=== PATIENT | female | born 1995 | race Caucasian/White ===

== ENCOUNTER 2019-05-16 03:40 | Emergency (ER) | payer BC, SELFPAY ==
[2019-05-16] MEDS ORDERED: Ibuprofen 200 MG TAB ONE (03:55)
--- NOTE | 2019-05-16 08:47 | RAD ---
LEFT ANKLE 3 VIEWS: HISTORY: Injury with ankle pain. FINDINGS: No significant soft tissue swelling. No evidence of fracture. IMPRESSION: No acute findings. POS: OFF
== END 2019-05-16 04:22 | disposition home or self-care (01) ==
LOC: ERS 03:40
DX: S93.402A Sprain of unspecified ligament of left ankle, initial encounter (principal); W18.2XXA Fall in (into) shower or empty bathtub, initial encounter

== ENCOUNTER 2020-01-17 08:42 | Outpatient (CLI) | payer OTHER ==
--- NOTE | 2020-01-17 09:48 | ULT ---
EXAM: Complete obstetrical ultrasound PROVIDED CLINICAL HISTORY: anatomy COMPARISON: None. FINDINGS: Number of gestations: Single. Presentation: Transverse with head to maternal right. Placental location: Anterior Previa: No evidence for previa. Cervical length: 5.8 cm ROLAN: 17.2 cm. heart rate: 150 bpm. Biparietal diameter: 4.8cm, 20 weeks 4 days, . Head circumference: 18.2 cm, 20 weeks 5 days, Abdominal circumference: 16.6 cm, 21 weeks 5 days, Femoral length: 3.9cm, 22 weeks 3 days, Estimated weight: 450 g +/- 66g SURVEY: head: Normal appearing. Cerebellum: Normal appearing. Cisterna magna: Normal appearing. Lateral ventricles: Normal appearing. 4 chamber heart: Normal appearing.. Stomach: Normal appearing. Kidneys: Normal appearing. Cord insertion: Normal appearing. Bladder: Normal appearing. Spine: Normal appearing. Lips and nose: Normal appearing. Extremities: Normal appearing. Three-vessel CORD: Normal appearing. The average gestational age by ultrasound is 21 weeks 3 days. IMPRESSION: 1. Single live intrauterine gestation with size and dates as above.
== END 2020-01-17 08:43 | disposition home or self-care (01) ==
LOC: BICULT 08:42
PROVIDERS: ATTEND Family Medicine
DX: O09.892 Supervision of other high risk pregnancies, second trimester (principal); Z3A.21 21 weeks gestation of pregnancy
CPT/HCPCS: 76805

== ENCOUNTER 2020-05-22 10:09 | Inpatient (IN) | payer OTHER ==
[~2020-05-22 10:09] MED LIST: Bupivacaine 0.25% HCL 30 ML VIAL ONE
[2020-05-22] MEDS ORDERED: Penicillin G Potassium 5 MILL.UNITS VIAL ONE (10:42)
[2020-05-22] MEDS ORDERED: Fentanyl 4 mcg/Bup 0.1% Cadd 100 ML ONE (10:54)
[2020-05-22 11:34] LABS: Hemoglobin 13.3 g/dL (12.0-16.0); Mean Corpuscular HGB CONC 33.3 g/dL (32.0-36.0); Mean Corpuscular Hemoglobin 28.8 pg (27.0-31.0); Mean Corpuscular Volume 86.5 fL (78.0-98.0); Mean Platelet Volume 10.5 fL (7.4-10.4); Platelet Count 234 thou/uL (130-400); RBC Distribution Width 13.6 % (11.5-14.5); Red Blood Cell (RBC) Count 4.63 mill/uL (4.20-5.40); White Blood Cell (WBC) Count 13.1 thou/uL (4.8-10.8)
[2020-05-22] MEDS ORDERED: Fentanyl 100 MCG/2 ML VIAL ONE (11:43)
[2020-05-22 11:44] VITALS: BMI 43.9
[2020-05-22 12:15] LABS: Syphilis Antibody Nonreactive (Nonreactive); Syphilis Antibody Index 0.03 S/CO (<1.00 Non-Reactive)
[2020-05-22 12:17] LABS: HBSAg Index 0.21 S/CO (0-0.99); Hep B Surf Ag Non-Reactive S/CO (NonReactive)
[2020-05-22] MEDS ORDERED: Ondansetron PF 4 MG/2 ML Vial IVP PRN ×2 (12:21→17:02)
[2020-05-22] MEDS ORDERED: Lactated Ringer's 500 ML IV PRN (12:21)
[2020-05-22] MEDS ORDERED: diphenhydrAMINE 50 MG/ML VIAL IVP PRN (12:21)
[2020-05-22] MEDS ORDERED: Promethazine HCl 25 MG/ML VIAL IM PRN (12:21)
[2020-05-22] MEDS ORDERED: EPHEDRINE 25 MG/5 ML SYRINGE SLOW IVP PRN (12:21)
[2020-05-22] MEDS ORDERED: Naloxone HCl 0.4 mg/ml Vial IVP PRN ×2 (12:21)
[2020-05-22] MEDS ORDERED: Acetaminophen 325 MG TAB PO PRN (12:21)
[2020-05-22] MEDS ORDERED: Fentanyl 4 mcg/Bupivacaine 0.1% Cassette 100 ML EPIDURAL SCH (12:30)
[2020-05-22] MEDS ORDERED: Communication Order-Pharmacy FS SCH (12:30)
[2020-05-22] MEDS ORDERED: Misoprostol 200 MCG TAB ONE (13:41)
[2020-05-22] MEDS ORDERED: NS / Oxytocin 40 units/1000ml 1,000 ML ONE (13:41)
[2020-05-22] MEDS ORDERED: Methylergonovine 0.2 MG/ML VIAL ONE (14:05)
[2020-05-22] MEDS ORDERED: HYDROcodone/Acetaminophen 5/325 mg Tablet PO PRN ×2 (17:02)
[2020-05-22] MEDS ORDERED: Milk Of Magnesia 30 ML UDCUP PO PRN (17:02)
[2020-05-22] MEDS ORDERED: Lanolin Ointment 7 GM TUBE TOP PRN (17:02)
[2020-05-22] MEDS ORDERED: hydrALAZINE 20 MG/ML VIAL SLOW IVP PRN (17:02)
[2020-05-22] MEDS ORDERED: diphenhydrAMINE 25 MG CAP PO PRN (17:02)
[2020-05-22] MEDS ORDERED: Bisacodyl 10 MG SUPP PR PRN (17:02)
[2020-05-22] MEDS ORDERED: NS / Oxytocin 40 units/1000ml 1,000 ML IV SCH (17:02)
[2020-05-22] MEDS ORDERED: Ferrous Sulfate 325 MG TAB PO SCH (17:45)
[2020-05-22] MEDS: Docusate Calcium (SURFAK) 240 MG CAP PO SCH (19:57)
[2020-05-22] MEDS: Ibuprofen 800 MG TAB PO SCH (19:57)
[2020-05-23] MEDS: Ibuprofen 800 MG TAB PO SCH ×3 (05:15→21:42)
[2020-05-23] MEDS ORDERED: Adacel (T-DAP) 0.5 ML SYRINGE IM ONE (09:00)
[2020-05-23] MEDS: Docusate Calcium (SURFAK) 240 MG CAP PO SCH ×2 (09:35→21:42)
[2020-05-23] MEDS: Ferrous Sulfate 325 MG TAB PO SCH ×2 (09:37→18:18)
[2020-05-24] MEDS: Ibuprofen 800 MG TAB PO SCH (05:26)
[2020-05-24 08:28] VITALS: TEMP 98.7
[2020-05-24 09:02] VITALS: BP 143/66
[2020-05-24] MEDS: Docusate Calcium (SURFAK) 240 MG CAP PO SCH (09:40)
[2020-05-24] MEDS: Ferrous Sulfate 325 MG TAB PO SCH (09:40)
== END 2020-05-24 16:52 | disposition home or self-care (01) | DRG 807 ==
LOC: L&D/OP 10:09 → L&D 14:00 → 3SE 17:20
PROVIDERS: ADMIT Family Medicine; ATTEND Family Medicine
PROC: 10E0XZZ Delivery of Products of Conception, External Approach (ICD-10-PCS; principal; 2020-05-22)
PROC: 10907ZC Drainage of Amniotic Fluid, Therapeutic from Products of Conception, Via Natural or Artificial Opening (ICD-10-PCS; 2020-05-22)
DX: O69.2XX0 Labor and delivery complicated by other cord entanglement, with compression, not applicable or unspecified (principal); Z37.0 Single live birth; Z3A.39 39 weeks gestation of pregnancy
CPT/HCPCS: 36415; 51702; 85027; 86780; 86850; 86900; 86901; 87340; J2210; J2540; J3010; S0020